=== PATIENT | male | born 1960 | race American Indian/Alaskan Native ===

== ENCOUNTER 2016-11-17 21:50 | Emergency (ER) | payer SELFPAY ==
--- NOTE | 2016-11-17 23:54 | XRay Report ---
FINAL REPORT PROCEDURE: XR KNEE BILAT 1-2V TECHNIQUE: Bilateral knee radiographs, standing AP view. HISTORY: pain, send for report COMPARISON: No prior studies are available for comparison. FINDINGS: There are no fractures or malalignments. There is no significant degenerative arthrosis. There is a small left suprapatellar bursa effusion. IMPRESSION: There are no fractures or malalignments. There is no significant degenerative arthrosis. There is a small left suprapatellar bursa effusion.
--- NOTE | 2016-11-18 03:19 | Emergency Department Report ---
ED Extremity Problem HPI - General Chief complaint: Extremity Injury, Lower Stated complaint: KNEE PAIN Time Seen by Provider: 11/18/16 03:16 Source: patient Mode of arrival: Ambulatory Limitations: No Limitations - History of Present Illness MD Complaint: extremity pain (bilateral), joint paint (lateral left greater than right) Onset/Timin -: days(s) Location: left, right, bilateral lower extremity, knee History of Same: Yes -: Yes arthralgia Radiation: none Severity scale (0 -10): 4 Quality: sharp Consistency: intermittent Improves with: nothing Worsens with: walking - Related Data Previous Rx's Medication Instructions Recorded Last Taken Type Ibuprofen [Motrin 800 MG tab] 800 mg PO Q8HR #30 tablet 11/18/16 Unknown Rx Allergies Allergy/AdvReac Type Severity Reaction Status Date / Time No Known Allergies Allergy Verified 11/17/16 23:13 ED Review of Systems ROS: Stated complaint: KNEE PAIN Other details as noted in HPI Constitutional: denies: chills, fever Eyes: denies: eye pain, eye discharge, vision change ENT: denies: ear pain, throat pain Respiratory: denies: cough, shortness of breath, wheezing Cardiovascular: denies: chest pain, palpitations Endocrine: no symptoms reported Gastrointestinal: denies: abdominal pain, nausea, diarrhea Genitourinary: denies: urgency, dysuria Musculoskeletal: joint swelling, arthralgia Skin: denies: rash, lesions Neurological: denies: headache, weakness, paresthesias ED Past Medical Hx - Past Medical History Previous Medical History?: Yes Additional medical history: Pancreatitis, GERD, HTN - Surgical History Past Surgical History?: No - Social History Smoking Status: Light Tobacco Smoker Substance Use Type: Alcohol - Medications Home Medications: Home Medications Medication Instructions Recorded Confirmed Last Taken Type Ibuprofen [Motrin 800 MG tab] 800 mg PO Q8HR #30 tablet 11/18/16 Unknown Rx ED Physical Exam - General Limitations: No Limitations, Other (recent able to ambulate around fast track without difficulties) General appearance: alert, in no apparent distress - Head Head exam: Present: atraumatic, normocephalic - Eye Eye exam: Present: normal appearance, PERRL, EOMI - ENT ENT exam: Present: mucous membranes moist - Expanded Lower Extremity Exam Left Hip exam: Present: normal inspection Upper Leg exam: Present: normal inspection Knee exam: Present: full ROM, swelling. Absent: tenderness Lower Leg exam: Present: normal inspection, full ROM. Absent: tenderness, swelling Ankle exam: Present: normal inspection, full ROM. Absent: tenderness, swelling Right Upper Leg exam: Present: normal inspection Knee exam: Present: normal inspection, full ROM. Absent: tenderness, swelling, deformity, crepidus Lower Leg exam: Present: normal inspection, full ROM. Absent: tenderness, swelling ED Course Vital Signs 11/17/16 23:13 Temperature 97.6 F Pulse Rate 90 Respiratory 18 Rate Blood Pressure 134/89 [Right] O2 Sat by Pulse 100 Oximetry ED Medical Decision Making - Radiology Data Radiology results: report reviewed, image reviewed IMPRESSION: There are no fractures or malalignments. There is no significant degenerative arthrosis. There is a small left suprapatellar bursa effusion. Transcribed By: CO Dictated By: EZEQUIEL MANJARREZ MD Electronically Authenticated By: EZEQUIEL MANJARREZ MD Signed Date/Time: 11/17/16 9371 - Medical Decision Making Patient's been evaluated by this provider fast track. Review of x-rays and reading supports a small left bursa infusion. Right knee no abnormalities. Discussed the patient we'll give him ibuprofen for pain. An refer patient to orthopedics. Patient verbalized understanding Critical care attestation.: If time is entered above; I have spent that time in minutes in the direct care of this critically ill patient, excluding procedure time. ED Disposition Clinical Impression: Knee pain, bilateral, Effusion of knee joint, left Disposition: DISCHARGED TO HOME OR SELFCARE Is pt being admited?: No Does the pt Need Aspirin: No Condition: Stable Additional Instructions: Please take ibuprofen as prescribed. Follow-up with orthopedics and I will listed below. Return to the emergency room if symptoms persists or gets worse. Prescriptions: Ibuprofen [Motrin 800 MG tab] 800 mg PO Q8HR #30 tablet Referrals: YOU WATSON MD [Primary Care Provider] - 3-5 Days LEE JULES MD [Staff Physician] - 3-5 Days [facility] [Provider Group] - 3-5 Days [facility] [Provider Group] - 3-5 Days Forms: Work/School Release Form(ED)
[2016-11-18] MEDS ORDERED: MOTRIN PO ONE (03:36)
[2016-11-18 05:14] VITALS: BP 128/82
== END 2016-11-18 04:25 | disposition home or self-care (01) ==
LOC: ED 21:50
DX: M79.604 Pain in right leg (principal); M79.605 Pain in left leg; M25.462 Effusion, left knee; M25.461 Effusion, right knee; I10 Essential (primary) hypertension; K21.9 Gastro-esophageal reflux disease without esophagitis; F17.200 Nicotine dependence, unspecified, uncomplicated
CPT/HCPCS: 99283